=== PATIENT | female | born 1995 | race Caucasian/White ===

== ENCOUNTER → 2017-11-29 11:04 | Outpatient (CLI) | payer SELFPAY | END | disposition home or self-care (01) | LOC: D.US 11:04 | DX: N60.01 Solitary cyst of right breast (principal) ==

== ENCOUNTER 2019-02-11 07:26 | Day surgery (SDC) | payer BC ==
[~2019-02-11] VITALS: Ht 160 cm; Wt 105.2 kg
[2019-02-11 08:10] LABS: HEMATOCRIT 36.5 % (36.0-48.0); HEMOGLOBIN 11.7 g/dL (12-16); MCH 25.4 pg (26.0-34.0); MCHC 32.1 g/dL (31.0-37.0); MCV 79.3 fL (80.0-100.0); RBC 4.6 10x6/uL (4.00-5.40); RDW 13.7 % (11.5-14.5); WBC 6.4 10x3/uL (4.8-10.8)
[2019-02-11 08:23] LABS: HCG SERUM NEGATIVE (NEGATIVE)
[2019-02-11 08:24] VITALS: BP 138/85; Ht 160 cm; Wt 105.2 kg
[2019-02-11 08:45] LABS: HCG URINE NEGATIVE (NEGATIVE)
--- NOTE | 2019-02-11 10:07 | HP ---
PATIENT: DIANA RAYMUNDO MEDICAL RECORD: [id number] ACCOUNT: [id number] LOCATION:[facility] : 94 ADMISSION DATE: 02/11/19 PCP: LIZ ROBLES DO HISTORY AND PHYSICAL EXAMINATION OF PRESENT ILLNESS: Diana is 23 years old. She has been having persistent problems with chronic pharyngitis and caseous tonsillitis. She is being admitted for tonsillectomy and adenoidectomy. PAST MEDICAL HISTORY: Otherwise negative. PAST SURGICAL HISTORY: None. CURRENT MEDICATIONS: None. ALLERGIES: BENADRYL. PHYSICAL EXAMINATION: GENERAL: She is healthy-appearing, developmentally normal. FACE: Normal, symmetric, no lesions. EYES: Sclerae and conjunctivae are normal. EARS: Canals and TMs are normal. NOSE: No mass, polyps or drainage. ORAL CAVITY AND OROPHARYNX: She has 3+ caseous tonsils with tremendous amount of tonsilliths bilaterally. Normal palate. NECK: No masses, no adenopathy. CHEST: Clear. CARDIOVASCULAR: Regular rate and rhythm, no murmur. EXTREMITIES: Normal. IMPRESSION: Chronic caseous tonsillitis and pharyngitis. PLAN: Tonsillectomy and adenoidectomy. TRANSINT:[id number] Voice Confirmation ID: [id number] DOCUMENT ID: [id number] JAMEY TRENT MD at 1007 CC: [id number] DICTATION DATE: 02/05/19 1003 [employer] SPECIALIST: 02/05/[address] [facility] [address] [place] [address]
--- NOTE | 2019-02-11 13:29 | NUR ---
DC INSTRUCTIONS GIVEN TO PT/FAMILY. STATE UNDERSTANDING. DC'D IV CATH FULLY INTACT.
--- NOTE | 2019-02-11 13:46 | NUR ---
PT LEFT UNIT VIA WC AT 1344
--- NOTE | 2019-02-12 08:19 | OP ---
PATIENT NAME: TESSA RAYMUNDO MEDICAL RECORD: [id number] :89 LOCATION:D.OPS ADMISSION DATE: SURGEON: JAMEY TRENT MD DATE OF OPERATION: 02/11/2019 PREOPERATIVE DIAGNOSIS: Chronic pharyngitis. POSTOPERATIVE DIAGNOSIS: Chronic pharyngitis. PROCEDURES: Tonsillectomy and adenoidectomy. SURGEON: Jamey Trent MD ANESTHESIA: General orotracheal. BLOOD LOSS: 5 cc. SPECIMENS: Right and left tonsil. COMPLICATIONS: None. DISPOSITION: Recovery, stable. PROCEDURE NOTE: She was brought to the operating room, placed in the supine position, sedated and intubated by anesthesia. Eyes were taped. Table was turned 90 degrees. Head drapes were applied. She was positioned for tonsillectomy. Using a headlight, a Keegan-Ryan mouth gag was carefully inserted and elevated on towel on her chest. The palate was examined and palpated, it was normal. A red rubber catheter was placed through the right side of the nose into the pharynx and grasped with tonsil clamp to retract the soft palate. Using a mirror, nasopharynx was examined. Suction cautery on a setting of 35 was used to ablate and suction the adenoid pad with no significant bleeding. A rubber catheter was let down and removed. Right tonsil was grasped at the superior pole. There were copious tonsilliths. Spatula tip cautery on a setting of 9 was used to dissect out the tonsil along its capsule, preserving the anterior and the posterior tonsillar pillar. Left tonsil was removed in the same fashion. Then, both sides of the nose were irrigated with saline. Pharynx was suctioned. Tonsillar fossae were agitated. Suction cautery on a setting of 20 was used to control minimal oozing. With the field clean and dry, the Keegan-Ryan mouth gag was let down and removed. She was awakened, extubated, and transported to recovery in good condition. No complications. TRANSINT:[id number] Voice Confirmation ID: [id number] DOCUMENT ID: [id number] JAMEY TRENT MD at 0819 CC: [id number] DICTATION DATE: 02/11/19 1547 [employer] SKIMMER: 02/11/19 1717 [facility] 02/11/19 [facility] [address] [place] [address]
== END 2019-02-11 13:44 | disposition home or self-care (01) ==
LOC: D.OPS 07:26 → D.PAN 08:15 → D.OPS 10:15 → D.PAN 10:15 → D.OPS 13:44
PROVIDERS: Anesthesiology; ATTEND Otolaryngology
DX: J35.01 Chronic tonsillitis (principal)